=== PATIENT | female | born 1960 | race Caucasian/White ===

== ENCOUNTER 2018-03-23 17:56 | Emergency (ER) | payer MEDICAID ==
[~2018-03-23] VITALS: Ht 162.6 cm; Wt 84.8 kg
[2018-03-23] MEDS ORDERED: BACL10TA PO (18:12)
[2018-03-23] MEDS ORDERED: ASPI-618 PO (18:12)
[2018-03-23] MEDS ORDERED: ATOR20TA PO (18:12)
[2018-03-23] MEDS ORDERED: LORA10TA7 PO (18:12)
[2018-03-23] MEDS ORDERED: MONT10TA22 PO (18:12)
[2018-03-23] MEDS ORDERED: IBUP-1492 PO (18:12)
[2018-03-23] MEDS ORDERED: GLIM4TAB PO (18:12)
[2018-03-23] MEDS ORDERED: LOSA1TAB3 PO (18:12)
[2018-03-23] MEDS ORDERED: CLOT30CR TP (18:12)
[2018-03-23] MEDS ORDERED: OMEP40CA37 PO (18:12)
[2018-03-23] MEDS ORDERED: METO50TA16 PO (18:12)
[2018-03-23] MEDS ORDERED: FLUT1BLS IH (18:12)
[2018-03-23] MEDS ORDERED: TRIA5PAS10 TOP (18:12)
[2018-03-23] MEDS ORDERED: METF10004 PO (18:12)
[2018-03-23] MEDS ORDERED: CHOL200078 PO (18:12)
[2018-03-23] MEDS ORDERED: INSU100V7 SQ (18:12)
--- NOTE | 2018-03-23 19:00 | NUR ---
Dr. Ordaz at bedside for MSE.
--- NOTE | 2018-03-23 19:10 | NUR ---
Xray at bedside.
[2018-03-23] MEDS ORDERED: PIPERACILLIN SODIUM/TAZOBACTAM 3.375 G in IV DEXTROSE 5% 50 ML IV ONE (19:15)
[2018-03-23] MEDS ORDERED: IV NORMAL SALINE 1000 ML BAG IV ONE (19:15)
[2018-03-23] MEDS ORDERED: VANCOMYCIN IV 1,000 MG in IV DEXTROSE 5% 250 ML IV ONE (19:15)
--- NOTE | 2018-03-23 19:30 | NUR ---
Pt provided urine, sent to lab.
[2018-03-23] MEDS ORDERED: PIPERACILLIN/TAZOBACTAM/D5W 50 ML IV ONE (19:33)
[2018-03-23] MEDS ORDERED: VANCOMYCIN IV 200 ML ONE (19:34)
[2018-03-23 19:36] LABS: BASOPHILS # (AUTO) 0.1 K/uL (0.0-8.0); BASOPHILS % (AUTO) 0.7 % (0.0-2.0); EOSINOPHILS # (AUTO) 0.1 K/uL (0.0-0.7); EOSINOPHILS % (AUTO) 0.8 % (0.0-7.0); HEMATOCRIT 35.5 % (31.2-41.9); LYMPHOCYTES # (AUTO) 1.9 K/uL (20.0-40.0); MEAN CORPUSCULAR HEMOGLOBIN 29.1 uug (24.7-32.8); MEAN CORPUSCULAR HGB CONC 34 g/dL (32.3-35.6); MONOCYTES # (AUTO) 0.6 K/uL (2.0-10.0); MONOCYTES % (AUTO) 7.6 % (0.0-11.0); NEUTROPHILS # (AUTO) 5.9 K/uL (1.8-8.9); NEUTROPHILS % (AUTO) 68.9 % (38.5-71.5); PLATELET COUNT (AUTO) 127 K/uL (179-408); RED BLOOD CELL COUNT(AUTO) 4.13 MIL/uL (3.63-4.92); WHITE BLOOD COUNT (AUTO) 8.5 K/uL (3.8-11.8)
[2018-03-23 19:45] LABS: *BLOOD, URINE NEGATIVE (NEGATIVE); *COLOR,URINE DARK YELLOW (YELLOW); *KETONES,URINE 1+ (NEGATIVE); *PROTEIN,URINE 1+ (NEGATIVE); LEUKOCYTE ESTERASE ,URINE NEGATIVE (NEGATIVE); NITRITE, URINE NEGATIVE (NEGATIVE)
[2018-03-23 19:45] LABS: CREATININE 1.1 mg/dL (0.6-1.3)
--- NOTE | 2018-03-23 19:46 | NUR ---
Lab called, reports glucose 324, MD notified.
[2018-03-23 19:56] LABS: UGLUCOSE 2+ (NEGATIVE)
[2018-03-23 19:56] LABS: BILIRUBIN,DIRECT 0.2 mg/dL (0.0-0.2); BILIRUBIN,TOTAL 0.4 mg/dL (0.2-1.0); TOTAL PROTEIN, SERUM 7.7 g/dL (6.4-8.2)
[2018-03-23 19:57] LABS: *BILIRUBIN,URIN 1+ (NEGATIVE); *CLARITY,URINE SLIGHTLY HAZY (CLEAR)
--- NOTE | 2018-03-23 19:59 | NUR ---
Lab called, reports pt lactic acid 4.1. notified.
[2018-03-23 20:02] LABS: RBC,URINE 0-3 /HPF (0-3); WBC,URINE 0-3 /HPF (0-3)
[2018-03-23 20:03] LABS: BACTERIA,URINE FEW /HPF (NONE SEEN); MUCUS,URINE FEW /LPF (0-FEW); SQUAMOUS EPITHELIAL CELL,UR MODERATE /HPF (NONE SEEN)
--- NOTE | 2018-03-23 21:23 | NUR ---
Spoke with [employer], Zion, informed that patient does not want to go to [facility], pt requesting either [place], [facility], or [place]. [employer] representative reports he will try [facility], will call back.
--- NOTE | 2018-03-23 21:44 | NUR ---
Spoke with [facility] guest relations representative, John, stated [facility] will be [facility], requested to have face sheet and medicals faxed to
--- NOTE | 2018-03-23 23:52 | NUR ---
SPOKE WITH SHANDA SUPERVISOR COFFEE FROM [facility] ABOUT TRANSPORTATION SET UP TO [facility]. WAITING FOR CALL BACK FROM SHANDA
--- NOTE | 2018-03-23 23:55 | NUR ---
Passed report to Miya ALARCON [facility]. .
--- NOTE | 2018-03-24 00:05 | NUR ---
Called Danita, given trip#[id number], Auth# [id number], ETA 45min ~ 0050.
--- NOTE | 2018-03-24 00:53 | NUR ---
Danita arrived to facility to transport patient to [facility]. Report and documents given to EMT.
--- NOTE | 2018-03-24 01:00 | NUR ---
Pt out of ER via [facility], patient to be transported to [facility].
== END 2018-03-24 01:06 | disposition short-term general hospital (02) ==
LOC: ER 18:01
DX: A41.9 Sepsis, unspecified organism (principal); R65.21 Severe sepsis with septic shock; L03.115 Cellulitis of right lower limb; E11.9 Type 2 diabetes mellitus without complications; I10 Essential (primary) hypertension; K21.9 Gastro-esophageal reflux disease without esophagitis; E78.5 Hyperlipidemia, unspecified; Z79.51 Long term (current) use of inhaled steroids; Z79.82 Long term (current) use of aspirin; Z79.1 Long term (current) use of non-steroidal anti-inflammatories (NSAID); Z79.899 Other long term (current) drug therapy
CPT/HCPCS: 36415; 71045; 73630; 80048; 80076; 81001; 83605 ×2; 83880; 84484; 85025; 85730; 87040 ×2; 87086; 93005; 96365; 96375; 99291; A4663; J2543; J3370; J7030 ×3; 70030-TC

== ENCOUNTER 2020-09-19 08:03 | Inpatient (IN) | payer MEDICAID ==
[~2020-09-19] VITALS: Ht 158.8 cm; Wt 88.5 kg
[~2020-09-19 08:03] MED LIST: ASPI-618 PO; ATOR20TA PO; BACL10TA PO; CHOL200078 PO; CLOT30CR TP; FLUT1BLS IH; GLIM4TAB PO; IBUP-1492 PO; INSU100V7 SQ; LORA10TA7 PO; LOSA1TAB3 PO; METF-442 PO; METO50TA16 PO; MONT10TA22 PO; OMEP40CA13 PO; TRIA5PAS10 TOP
[2020-09-19] MEDS ORDERED: INSULIN REGULAR, HUMAN 100 UNITS in IV NORMAL SALINE 100 ML IV PRN ×2 (08:45)
[2020-09-19] MEDS ORDERED: INSULIN REGULAR, HUMAN 100 UNITS in IV NORMAL SALINE 100 ML IV ONE ×2 (08:45)
[2020-09-19] MEDS: IV NORMAL SALINE 1000 ML BAG IV ONE (08:50)
[2020-09-19] MEDS: BLOOD SUGAR DIAGNOSTIC 1 EACH STRIP VI SCH ×16 (08:50→23:00)
[2020-09-19 09:30] LABS: BILIRUBIN,DIRECT 0.2 mg/dL (0.0-0.2); BILIRUBIN,TOTAL 0.5 mg/dL (0.2-1.0); CREATININE 1.3 mg/dL (0.6-1.3); TOTAL PROTEIN, SERUM 5.6 g/dL (6.4-8.2)
[2020-09-19 09:32] LABS: BASOPHILS # (AUTO) 0.1 K/uL (0.0-8.0); BASOPHILS % (AUTO) 0.4 % (0.0-2.0); EOSINOPHILS % (AUTO) 0.3 % (0.0-7.0); HEMATOCRIT 24.1 % (31.2-41.9); HEMOGLOBIN 7.9 g/dL (10.9-14.3); LYMPHOCYTES # (AUTO) 3.3 K/uL (20.0-40.0); MEAN CORPUSCULAR HEMOGLOBIN 29.4 uug (24.7-32.8); MEAN CORPUSCULAR HGB CONC 33 g/dL (32.3-35.6); MEAN CORPUSCULAR VOLUME 89.9 fL (75.5-95.3); MONOCYTES # (AUTO) 0.9 K/uL (2.0-10.0); MONOCYTES % (AUTO) 5.6 % (0.0-11.0); NEUTROPHILS # (AUTO) 11.6 K/uL (1.8-8.9); NEUTROPHILS % (AUTO) 72.7 % (38.5-71.5); PLATELET COUNT (AUTO) 131 K/uL (179-408); RED BLOOD CELL COUNT(AUTO) 2.68 MIL/uL (3.63-4.92); WHITE BLOOD COUNT (AUTO) 15.9 K/uL (3.8-11.8)
[2020-09-19] MEDS ORDERED: IV NORMAL SALINE 1000 ML BAG IV ONE ×3 (10:00→19:15)
[2020-09-19] MEDS ORDERED: INSULIN REGULAR, HUMAN 100 UNIT in IV NORMAL SALINE 99 ML IV PRN ×2 (11:45)
[2020-09-19] MEDS ORDERED: ACETAMINOPHEN 650 MG SUPP.RECT RC PRN (11:45)
[2020-09-19] MEDS ORDERED: ONDANSETRON 4 MG/2 ML VIAL IV PRN (11:45)
[2020-09-19] MEDS ORDERED: IV NS 1000 ML 1,000 ML IV PRN ×2 (11:45→22:30)
[2020-09-19] MEDS ORDERED: ENOXAPARIN SODIUM 30 MG/0.3 ML DISP.SYRIN SQ SCH (11:45)
--- NOTE | 2020-09-19 12:27 | NUR ---
Patient moved from [facility] to hospital bed for comfort, still waiting for CCU/ICU bed & nurse@this time.
--- NOTE | 2020-09-19 13:35 | NUR ---
Patient ambulated to bathroom from ER room 2A, unassisted with slow steady gait. Patient voided and had one BM of dark brown stool.
[2020-09-19 15:13] LABS: *BILIRUBIN,URIN NEGATIVE (NEGATIVE); *BLOOD, URINE NEGATIVE (NEGATIVE); *CLARITY,URINE CLEAR (CLEAR); *COLOR,URINE YELLOW (YELLOW); *KETONES,URINE TRACE (NEGATIVE); *UROBILINOGEN,URINE 0.2 E.U./dl (NORMAL); LEUKOCYTE ESTERASE ,URINE NEGATIVE (NEGATIVE); NITRITE, URINE NEGATIVE (NEGATIVE); UGLUCOSE 2+ (NEGATIVE)
--- NOTE | 2020-09-19 15:21 | NUR ---
Patient ambulated to bathroom with minimal assist (about 3 more times to void,) +slow steady gait, calm & still waiting for assigned CCU/ICU bed/nurse@this time
--- NOTE | 2020-09-19 16:20 | NUR ---
Patient is resting comfortably in bed with eyes closed, still waiting for assigned CCU/ICU bed & nurse@this time
[2020-09-19] MEDS: METOPROLOL TARTRATE 50 MG TABLET PO SCH (17:00)
--- NOTE | 2020-09-19 17:07 | NUR ---
Patient was seen partially sitting on the floor with RN Sawyer behind the patient. Patient wanted to use the bathroom earlier and was guided to the bathroom. Per RN Bill, as patient started to walk, the patient seemed to become less alert. RN Sawyer caught the patient before the fall. Patient was eased on to the ground. 4 additional nurses came to move the patient back to the hospital bed. Patient was examined for injuries. Patient denies pains. No visible injuries seen. Dr Lisa notified.
[2020-09-19 17:40] LABS: URIC ACID 6.2 mg/dL (2.6-6.0)
[2020-09-19 17:55] LABS: POTASSIUM 4.1 mmol/L (3.5-5.1)
[2020-09-19 18:10] LABS: THYROID STIMULATING HORMONE 1.447 mIU/mL (0.358-3.740)
[2020-09-19] MEDS ORDERED: DEXTROSE 50% 50 ML DISP.SYRIN IV PRN (18:45)
--- NOTE | 2020-09-19 18:46 | NUR ---
Patient wants to go to the bathroom again. Patient was repeatedly reminded of her carter catheter which is draining her urine. Comfort and safety measures maintained.
[2020-09-19 18:54] LABS: *CREATININE,URINE 32.3 mg/dL (30-125); *URINE TOTAL PROTEIN RANDOM < 6.0 mg/dL (<150/24HR)
--- NOTE | 2020-09-19 18:54 | NUR ---
Insulin drip stopped per LATESHA Macias.
--- NOTE | 2020-09-19 18:59 | NUR ---
Endorsed to DORIAN Rooney accordingly.
--- NOTE | 2020-09-19 19:11 | NUR ---
Still waiting for CCU/ICU bed & nurse, IV insulin drip has been stopped per [employer] WORK[employer] Princess Macias, endorsed to RN Zia accordingly.
[2020-09-19] MEDS: INSULIN REGULAR, HUMAN 300 UNIT/3 ML VIAL SQ PRN ×5 (19:36→23:01)
[2020-09-19 19:42] LABS: POTASSIUM 4.2 mmol/L (3.5-5.1)
[2020-09-19] MEDS ORDERED: IV LACTATED RINGERS SOLUTION 1,000 ML IV ONE (19:45)
--- NOTE | 2020-09-19 19:45 | NUR ---
AT 1910 ECEIVED SBAR REPORT FROM [place] RN, PT ACCU VNMYP=993, 2O UNUBTS REG INSULIN SQ ADMINISTERED. MONITOR SHOWS SINUS TACH AT 116 BPM,PO2=99% ON ROOMAIR, BP=97/46. PT HAS NO COMPLAINTS. 0.9 NS 1L INFUSING.
[2020-09-19 19:59] LABS: BASOPHILS # (AUTO) 0.1 K/uL (0.0-8.0); BASOPHILS % (AUTO) 0.5 % (0.0-2.0); EOSINOPHILS # (AUTO) 0.1 K/uL (0.0-0.7); LYMPHOCYTES # (AUTO) 4.8 K/uL (20.0-40.0); MEAN CORPUSCULAR HEMOGLOBIN 28.9 uug (24.7-32.8); MEAN CORPUSCULAR HGB CONC 33 g/dL (32.3-35.6); MONOCYTES # (AUTO) 1.6 K/uL (2.0-10.0)
[2020-09-19 20:01] LABS: EOSINOPHILS % (AUTO) 0.4 % (0.0-7.0); LYMPHOCYTES % (AUTO) 22.8 % (20.5-51.5); MEAN CORPUSCULAR VOLUME 88.3 fL (75.5-95.3); MONOCYTES % (AUTO) 7.6 % (0.0-11.0); NEUTROPHILS # (AUTO) 14.4 K/uL (1.8-8.9); NEUTROPHILS % (AUTO) 68.7 % (38.5-71.5); PLATELET COUNT (AUTO) 141 K/uL (179-408); WHITE BLOOD COUNT (AUTO) 20.9 K/uL (3.8-11.8)
[2020-09-19 20:06] LABS: RED BLOOD CELL COUNT(AUTO) 1.99 MIL/uL (3.63-4.92)
[2020-09-19 20:07] LABS: HEMATOCRIT 17.6 % (31.2-41.9); HEMOGLOBIN 5.7 g/dL (10.9-14.3)
[2020-09-19] MEDS ORDERED: PANTOPRAZOLE SODIUM 40 MG VIAL IV SCH (20:15)
--- NOTE | 2020-09-19 20:21 | NUR ---
PHARMACY NOTE FOR ACCU CHECH AT 1999. TWO ORDERS OF ACCU CHECK AT 1999. ONE WAS DOS COMPLETED, ACUU CHECK = 277, AND PT ADMINISTERED 12 UNITS REGULAR INSULIN SQ TO LLQ ABD.
[2020-09-19 20:22] LABS: *OCCULT BLOOD STOOL POSITIVE (NEGATIVE)
[2020-09-19] MEDS ORDERED: PIPERACILLIN/TAZOBACTAM/D5W 50 ML IV ONE (20:29)
[2020-09-19] MEDS: PIPERACILLIN SODIUM/TAZOBACTAM 3.375 G in IV DEXTROSE 5% 50 ML IV SCH (20:39)
[2020-09-19] MEDS: BACLOFEN 10 MG TABLET PO SCH (20:44)
[2020-09-19] MEDS: ATORVASTATIN 20 MG TABLET PO SCH (21:12)
--- NOTE | 2020-09-19 22:38 | NUR ---
PHARMACY NOTE; LACTATED RINGERS INFUSION COMPLETED AT 4796 TO LEFT HAND
[2020-09-20] MEDS: PIPERACILLIN SODIUM/TAZOBACTAM 3.375 G in IV DEXTROSE 5% 50 ML IV SCH ×4 (00:01→18:00)
[2020-09-20] MEDS: BLOOD SUGAR DIAGNOSTIC 1 EACH STRIP VI SCH ×21 (00:06→20:00)
[2020-09-20 00:07] LABS: BAND % (MANUAL) 1 % (0-10); EOSINOPHILS % (MANUAL) 1 % (0-8); LYMPHOCYTES % (MANUAL) 18 % (20-40); MONOCYTES % (MANUAL) 8 % (2-10); NEUTROPHILS % (MANUAL) 72 % (42-75)
[2020-09-20] MEDS: INSULIN REGULAR, HUMAN 300 UNIT/3 ML VIAL SQ PRN ×5 (00:08→16:44)
--- NOTE | 2020-09-20 01:01 | NUR ---
1ST UINIT OF GUERALOD STARTED AT 54, CONSENT SIGNED, TOY MIDDLETON RN WITTNESSED AND CHECKED UNIT. PT NOTIFIED OF ADVERSE REACTIONS.
--- NOTE | 2020-09-20 01:56 | NUR ---
BLOOD TRANSFUSION OF FIRST UNIT COMPLETED, NO ADVERSE OR ALLERGIC REACTIONS NOTED.
--- NOTE | 2020-09-20 02:45 | NUR ---
2ND UNIT OF BLOOD TRANSFUSION STARTED.
--- NOTE | 2020-09-20 03:48 | NUR ---
2ND UNIT OF BLOOD INFUSING, PT ASLEEP, EYES CLOSED, MONITOR SHOWS SINUS TACH AT 102, VSS.
--- NOTE | 2020-09-20 04:14 | NUR ---
URINARY FOWLEY BAG EMPTIED, 900ML OF URINE DRAINED.
[2020-09-20] MEDS ORDERED: PIPERACILLIN SODIUM/TAZO 3.375 GM VIAL ONE (05:57)
--- NOTE | 2020-09-20 06:59 | NUR ---
MONITOR SHOWS NSR, SBAR REPORT GUILLE PEARL RN. PT SLEEPING.
[2020-09-20] MEDS: METOPROLOL TARTRATE 50 MG TABLET PO SCH ×2 (09:00→17:00)
[2020-09-20] MEDS ORDERED: Medication Not On Formulary EA (Losartan/Hydrochlorothiazide (Hyzaar 50-12.5 Tablet) 1 E PO SCH (09:00)
[2020-09-20] MEDS ORDERED: ASPIRIN EC 81 MG TABLET.DR PO SCH (09:00)
[2020-09-20 10:09] LABS: BASOPHILS # (AUTO) 0.1 K/uL (0.0-8.0); BASOPHILS % (AUTO) 0.5 % (0.0-2.0); EOSINOPHILS # (AUTO) 0.3 K/uL (0.0-0.7); EOSINOPHILS % (AUTO) 1.5 % (0.0-7.0); HEMATOCRIT 23.4 % (31.2-41.9); LYMPHOCYTES # (AUTO) 4.5 K/uL (20.0-40.0); LYMPHOCYTES % (AUTO) 24.6 % (20.5-51.5); MEAN CORPUSCULAR HEMOGLOBIN 29.7 uug (24.7-32.8); MEAN CORPUSCULAR HGB CONC 34 g/dL (32.3-35.6); MEAN CORPUSCULAR VOLUME 87.1 fL (75.5-95.3); MONOCYTES # (AUTO) 1.2 K/uL (2.0-10.0); MONOCYTES % (AUTO) 6.5 % (0.0-11.0); NEUTROPHILS # (AUTO) 12.1 K/uL (1.8-8.9); NEUTROPHILS % (AUTO) 66.9 % (38.5-71.5); PLATELET COUNT (AUTO) 90 K/uL (179-408); RED BLOOD CELL COUNT(AUTO) 2.69 MIL/uL (3.63-4.92); WHITE BLOOD COUNT (AUTO) 18.1 K/uL (3.8-11.8)
[2020-09-20 10:16] LABS: BILIRUBIN,TOTAL 0.4 mg/dL (0.2-1.0); CREATININE 0.9 mg/dL (0.6-1.3); MAGNESIUM 1.6 mg/dL (1.8-2.4); PHOSPHOROUS 2.4 mg/dL (2.5-4.9); POTASSIUM 3.4 mmol/L (3.5-5.1); TOTAL PROTEIN, SERUM 4.8 g/dL (6.4-8.2)
[2020-09-20] MEDS: FLUTICASONE/VILANTEROL 1 EACH BLST.W.DEV IH SCH (11:00)
[2020-09-20] MEDS: CLOTRIMAZOLE 1% CREAM 30 GM TUBE TP SCH (11:00)
[2020-09-20] MEDS: CHOLECALCIFEROL 1,000 UNIT TABLET PO SCH (11:00)
[2020-09-20] MEDS ORDERED: MAGNESIUM SULFATE/D5W 100 ML IV SCH (11:45)
[2020-09-20] MEDS: LOSARTAN POTASSIUM 50 MG TABLET PO SCH (12:00)
[2020-09-20] MEDS: HYDROCHLOROTHIAZIDE 12.5 MG CAPSULE PO SCH (12:00)
[2020-09-20] MEDS ORDERED: POTASSIUM CHLORIDE 20 MEQ TAB.PRT.SR PO ONE (12:00)
[2020-09-20] MEDS ORDERED: VANCOMYCIN IV 750 MG in IV DEXTROSE 5% 250 ML IV SCH (12:00)
[2020-09-20] MEDS: VANCOMYCIN IV 750 MG in IV DEXTROSE 5% 250 ML IV SCH (13:01)
[2020-09-20] MEDS ORDERED: MAGNESIUM SULFATE/D5W 100 ML ONE (13:02)
[2020-09-20] MEDS ORDERED: VANCOMYCIN IV 200 ML ONE (13:18)
[2020-09-20] MEDS ORDERED: POTASSIUM CHLORIDE 20 MEQ TAB.PRT.SR ONE (13:18)
[2020-09-20] MEDS: POTASSIUM PHOSPHATE MM 7.5 MMOL in IV NORMAL SALINE 97.5 ML IV SCH ×2 (14:48→22:02)
[2020-09-20] MEDS ORDERED: INSULIN REGULAR, HUMAN 300 UNIT/3 ML VIAL ONE (15:01)
[2020-09-20 15:30] LABS: BASOPHILS % (AUTO) 0.4 % (0.0-2.0); EOSINOPHILS # (AUTO) 0.2 K/uL (0.0-0.7); EOSINOPHILS % (AUTO) 1.4 % (0.0-7.0); HEMATOCRIT 22.6 % (31.2-41.9); HEMOGLOBIN 7.5 g/dL (10.9-14.3); LYMPHOCYTES # (AUTO) 2.4 K/uL (20.0-40.0); MEAN CORPUSCULAR HEMOGLOBIN 28.9 uug (24.7-32.8); MEAN CORPUSCULAR HGB CONC 33 g/dL (32.3-35.6); MEAN CORPUSCULAR VOLUME 86.9 fL (75.5-95.3); MONOCYTES # (AUTO) 0.8 K/uL (2.0-10.0); MONOCYTES % (AUTO) 6.2 % (0.0-11.0); PLATELET COUNT (AUTO) 84 K/uL (179-408); WHITE BLOOD COUNT (AUTO) 13.5 K/uL (3.8-11.8)
--- NOTE | 2020-09-20 17:28 | NUR ---
report was given to lucerne farmer. pt was transfered to room #319.
[2020-09-20] MEDS: MONTELUKAST SODIUM 10 MG TABLET PO SCH (18:00)
--- NOTE | 2020-09-20 19:00 | NUR ---
patient receive sitting on the bed,assisted back to bed.k rider on , iv cannula to the left wrist is rtnder.discontinued . iv cannula to th lft hand restarted the k rider.
[2020-09-20 20:29] VITALS: BP 102/46
[2020-09-20] MEDS: PANTOPRAZOLE SODIUM 40 MG VIAL IV SCH (22:01)
[2020-09-20] MEDS: BACLOFEN 10 MG TABLET PO SCH (22:01)
[2020-09-20] MEDS: ATORVASTATIN 20 MG TABLET PO SCH (22:01)
--- NOTE | 2020-09-20 22:52 | NUR ---
iv cannula g 22 right forearm inserted and krider restarted,
[2020-09-21 00:33] VITALS: BP 109/54
[2020-09-21] MEDS: INSULIN REGULAR, HUMAN 300 UNIT/3 ML VIAL SQ PRN ×4 (01:23→21:18)
[2020-09-21] MEDS: VANCOMYCIN IV 750 MG in IV DEXTROSE 5% 250 ML IV SCH ×2 (01:29→14:24)
[2020-09-21] MEDS: BLOOD SUGAR DIAGNOSTIC 1 EACH STRIP VI SCH ×7 (04:00→23:20)
[2020-09-21 05:09] VITALS: BP 108/47
[2020-09-21] MEDS: PIPERACILLIN SODIUM/TAZOBACTAM 3.375 G in IV DEXTROSE 5% 50 ML IV SCH ×6 (05:11→23:20)
--- NOTE | 2020-09-21 08:02 | NUR ---
UNABLE TO OBTAIN FAMILY HISTORY
[2020-09-21 08:15] VITALS: BP 99/40
[2020-09-21 08:53] LABS: MAGNESIUM 1.6 mg/dL (1.8-2.4); PHOSPHOROUS 2.3 mg/dL (2.5-4.9)
[2020-09-21] MEDS: LOSARTAN POTASSIUM 50 MG TABLET PO SCH (09:00)
[2020-09-21] MEDS: FLUTICASONE/VILANTEROL 1 EACH BLST.W.DEV IH SCH (09:00)
[2020-09-21] MEDS: METOPROLOL TARTRATE 50 MG TABLET PO SCH ×2 (09:00→16:58)
[2020-09-21 10:24] LABS: CREATININE 0.7 mg/dL (0.6-1.3); POTASSIUM 3.1 mmol/L (3.5-5.1)
[2020-09-21 10:36] LABS: BASOPHILS % (AUTO) 0.7 % (0.0-2.0); EOSINOPHILS # (AUTO) 0.2 K/uL (0.0-0.7); HEMATOCRIT 22.1 % (31.2-41.9); HEMOGLOBIN 7.5 g/dL (10.9-14.3); LYMPHOCYTES # (AUTO) 1.4 K/uL (20.0-40.0); LYMPHOCYTES % (AUTO) 20.6 % (20.5-51.5); MEAN CORPUSCULAR HEMOGLOBIN 29.8 uug (24.7-32.8); MEAN CORPUSCULAR HGB CONC 34 g/dL (32.3-35.6); MEAN CORPUSCULAR VOLUME 88.1 fL (75.5-95.3); MONOCYTES # (AUTO) 0.5 K/uL (2.0-10.0); MONOCYTES % (AUTO) 7.6 % (0.0-11.0); NEUTROPHILS # (AUTO) 4.6 K/uL (1.8-8.9); NEUTROPHILS % (AUTO) 68.1 % (38.5-71.5); PLATELET COUNT (AUTO) 67 K/uL (179-408); WHITE BLOOD COUNT (AUTO) 6.8 K/uL (3.8-11.8)
[2020-09-21] MEDS: PANTOPRAZOLE SODIUM 40 MG VIAL IV SCH ×2 (10:49→20:58)
[2020-09-21] MEDS: CHOLECALCIFEROL 1,000 UNIT TABLET PO SCH (10:51)
[2020-09-21] MEDS: HYDROCHLOROTHIAZIDE 12.5 MG CAPSULE PO SCH (10:53)
[2020-09-21] MEDS: CLOTRIMAZOLE 1% CREAM 30 GM TUBE TP SCH (10:55)
[2020-09-21 11:15] VITALS: BP 105/51
[2020-09-21] MEDS ORDERED: POTASSIUM CHLORIDE 20 MEQ TAB.PRT.SR PO ONE (11:30)
[2020-09-21] MEDS ORDERED: NEUTRA PHOS PACKET PO ONE (13:00)
[2020-09-21] MEDS: IV DEXTROSE 5%-0.9%NS+20MeqKCL 1,000 ML IV PRN (14:24)
[2020-09-21] MEDS ORDERED: VANCOMYCIN IV 1,000 MG in IV DEXTROSE 5% 250 ML IV SCH (15:00)
[2020-09-21 15:20] VITALS: BP 100/58
[2020-09-21] MEDS ORDERED: MIRALAX 17 GM POWD.PACK PO ONE (16:15)
[2020-09-21] MEDS: MONTELUKAST SODIUM 10 MG TABLET PO SCH (16:58)
--- NOTE | 2020-09-21 19:30 | NUR ---
RECEIVED PT AWAKE, ALERT AND ORIENTEDX4. PT IN NO ACUTE DISTRESS. IV INTACT. CERVANTES CATHETER INTACT AND DRAINING WELL.PT ON SR ON HEART MONITOR. SAFETY AND COMFORT PROVIDED.WILL CONTINUE TO MONITOR.
[2020-09-21 20:55] VITALS: BP 120/64
[2020-09-21] MEDS: BACLOFEN 10 MG TABLET PO SCH (20:58)
[2020-09-21] MEDS: ATORVASTATIN 20 MG TABLET PO SCH (20:58)
--- NOTE | 2020-09-21 21:00 | NUR ---
DAUGHTER OF THE PT CALLED AND CLARIFIED THAT HER MOTHER DOESN'T HAVE ANY BLOOD IN THE STOOL AND DIDN'T VOMIT BLOOD. DAUGHTER WANTS TO TALK TO THE DOCTOR. TOLD DR THAT WE WILL RELAY THE MESSAGE.
--- NOTE | 2020-09-21 23:20 | NUR ---
PT REFUSED FOR BLOOD CHECK FOR 0000H. PT STATED SHE WANTS TO SLEEP. PT IN NO ACUTE DISTRESS. WILL CONTINUE TO MONITOR.
[2020-09-22] VITALS (11 sets, daily range): BP systolic 100–147; BP diastolic 40–71
[2020-09-22] MEDS: VANCOMYCIN IV 1,000 MG in IV DEXTROSE 5% 250 ML IV SCH ×2 (02:13→14:26)
[2020-09-22] MEDS: BLOOD SUGAR DIAGNOSTIC 1 EACH STRIP VI SCH ×6 (04:08→23:16)
[2020-09-22] MEDS: INSULIN REGULAR, HUMAN 300 UNIT/3 ML VIAL SQ PRN ×4 (04:09→20:36)
[2020-09-22] MEDS: PIPERACILLIN SODIUM/TAZOBACTAM 3.375 G in IV DEXTROSE 5% 50 ML IV SCH ×4 (05:03→23:21)
--- NOTE | 2020-09-22 06:57 | NUR ---
PT SLEPT INTERMITTENTLY. PT IN NO ACUTE DISTRESS. IV INTACT. CERVANTES CATHETER INTACT AND DRAINING YELLOW COLORED URINE WITH SEDIMENTS. PT STATING SHE WANTS TO GO HOME BECAUSE ITS HER SON'S BIRTHDAY.pt on sinus rhythm. SAFETY AND COMFORT PROVIDED. WILL ENDORSE TO INCOMING NURSE FOR CONTINUITY OF CARE.
[2020-09-22 07:57] LABS: CREATININE 0.8 mg/dL (0.6-1.3); POTASSIUM 2.9 mmol/L (3.5-5.1)
[2020-09-22 08:04] LABS: BASOPHILS % (AUTO) 0.8 % (0.0-2.0); EOSINOPHILS # (AUTO) 0.1 K/uL (0.0-0.7); EOSINOPHILS % (AUTO) 2.1 % (0.0-7.0); LYMPHOCYTES # (AUTO) 1.1 K/uL (20.0-40.0); LYMPHOCYTES % (AUTO) 26.1 % (20.5-51.5); MEAN CORPUSCULAR HGB CONC 35 g/dL (32.3-35.6); MEAN CORPUSCULAR VOLUME 89.6 fL (75.5-95.3); MONOCYTES # (AUTO) 0.3 K/uL (2.0-10.0); MONOCYTES % (AUTO) 7.4 % (0.0-11.0); NEUTROPHILS # (AUTO) 2.7 K/uL (1.8-8.9); NEUTROPHILS % (AUTO) 63.6 % (38.5-71.5); PLATELET COUNT (AUTO) 59 K/uL (179-408); WHITE BLOOD COUNT (AUTO) 4.3 K/uL (3.8-11.8)
[2020-09-22 08:19] LABS: RED BLOOD CELL COUNT(AUTO) 2.23 MIL/uL (3.63-4.92)
[2020-09-22 08:21] LABS: HEMATOCRIT 19.9 % (31.2-41.9); HEMOGLOBIN 6.9 g/dL (10.9-14.3)
[2020-09-22] MEDS: CHOLECALCIFEROL 1,000 UNIT TABLET PO SCH (08:25)
[2020-09-22] MEDS: HYDROCHLOROTHIAZIDE 12.5 MG CAPSULE PO SCH (08:29)
[2020-09-22] MEDS: LOSARTAN POTASSIUM 50 MG TABLET PO SCH (08:29)
[2020-09-22] MEDS: PANTOPRAZOLE SODIUM 40 MG VIAL IV SCH ×2 (08:30→20:55)
[2020-09-22] MEDS: METOPROLOL TARTRATE 50 MG TABLET PO SCH ×2 (08:30→16:35)
[2020-09-22] MEDS: FLUTICASONE/VILANTEROL 1 EACH BLST.W.DEV IH SCH (08:43)
[2020-09-22] MEDS: CLOTRIMAZOLE 1% CREAM 30 GM TUBE TP SCH (08:43)
[2020-09-22] MEDS: POTASSIUM CHLORIDE 20 MEQ TAB.PRT.SR PO SCH ×3 (10:03→11:59)
[2020-09-22] MEDS: MONTELUKAST SODIUM 10 MG TABLET PO SCH (17:24)
--- NOTE | 2020-09-22 17:46 | NUR ---
Pt receiving blood tx. 1 uint prbc as ordered. No reaction within 30mins increased rate to 120cc/hr. PT aware of s/s of blood reaction and to notify RN for and reactions.
--- NOTE | 2020-09-22 17:54 | NUR ---
No actively bleeding noted this shift. Pt denies any bleeding as well. PT tolerating blood
--- NOTE | 2020-09-22 19:30 | NUR ---
RECEIVED PT AWAKE, ALERT AND ORIENTEDX4. PT IV INTACT AND BLOOD TRANSFUSION ONGOING. . PT ON ROOM AIR. SAFETY AND COMFORT PROVIDED. WILL CONTINUE TO MONITOR.
[2020-09-22] MEDS: BACLOFEN 10 MG TABLET PO SCH (20:15)
[2020-09-22] MEDS: ATORVASTATIN 20 MG TABLET PO SCH (20:15)
--- NOTE | 2020-09-22 21:30 | NUR ---
AT 2030H BLOOD TRANSFUSION DONE. NO ADVERSE REACTION NOTED. PT TOLERATED IT WELL. VITAL SIGNS STABLE. WILL COTNINUE TO MONITOR.
[2020-09-22 22:51] LABS: EOSINOPHILS % (MANUAL) 2 % (0-8); LYMPHOCYTES % (MANUAL) 25 % (20-40); MONOCYTES % (MANUAL) 8 % (2-10); NEUTROPHILS % (MANUAL) 65 % (42-75)
--- NOTE | 2020-09-23 00:10 | NUR ---
DAUGHTER CALLED FOR AN UPDATE REGARDING HER MOM. DAUGHTER WANTS PRIMARY DOCTOR TO CALL HER FOR UPDATES.
[2020-09-23] MEDS: VANCOMYCIN IV 1,000 MG in IV DEXTROSE 5% 250 ML IV SCH ×2 (02:16→15:39)
[2020-09-23] MEDS: BLOOD SUGAR DIAGNOSTIC 1 EACH STRIP VI SCH ×4 (03:57→15:48)
[2020-09-23] MEDS: IV DEXTROSE 5%-0.9%NS+20MeqKCL 1,000 ML IV PRN (03:58)
[2020-09-23 04:28] VITALS: BP 109/50
[2020-09-23] MEDS: PIPERACILLIN SODIUM/TAZOBACTAM 3.375 G in IV DEXTROSE 5% 50 ML IV SCH ×3 (05:32→18:00)
--- NOTE | 2020-09-23 06:13 | NUR ---
PT SLEPT INTERMITTENTLY. PT IN NO ACUTE DISTRESS. PT ON ROOM AIR. PRESCRIBED MEDICATION GIVEN AND PT TOLERATED IT WELL. PT IV INTACT. SAFETY AND COMFORT PROVIDED. WILL ENDORSE TO INCOMING NURSE FOR CONTINUITY OF CARE.
[2020-09-23 06:33] LABS: BASOPHILS % (AUTO) 0.7 % (0.0-2.0); EOSINOPHILS # (AUTO) 0.1 K/uL (0.0-0.7); HEMOGLOBIN 8.9 g/dL (10.9-14.3); LYMPHOCYTES # (AUTO) 1.3 K/uL (20.0-40.0); LYMPHOCYTES % (AUTO) 28.9 % (20.5-51.5); MEAN CORPUSCULAR HEMOGLOBIN 30.6 uug (24.7-32.8); MEAN CORPUSCULAR HGB CONC 34 g/dL (32.3-35.6); MEAN CORPUSCULAR VOLUME 89.6 fL (75.5-95.3); MONOCYTES # (AUTO) 0.4 K/uL (2.0-10.0); MONOCYTES % (AUTO) 8.3 % (0.0-11.0); NEUTROPHILS # (AUTO) 2.7 K/uL (1.8-8.9); NEUTROPHILS % (AUTO) 60.1 % (38.5-71.5); PLATELET COUNT (AUTO) 73 K/uL (179-408); RED BLOOD CELL COUNT(AUTO) 2.91 MIL/uL (3.63-4.92); WHITE BLOOD COUNT (AUTO) 4.5 K/uL (3.8-11.8)
[2020-09-23 06:45] LABS: BILIRUBIN,TOTAL 0.6 mg/dL (0.2-1.0); CREATININE 0.8 mg/dL (0.6-1.3); POTASSIUM 3.6 mmol/L (3.5-5.1); TOTAL PROTEIN, SERUM 5.6 g/dL (6.4-8.2)
[2020-09-23] MEDS: CHOLECALCIFEROL 1,000 UNIT TABLET PO SCH (08:43)
[2020-09-23] MEDS: LOSARTAN POTASSIUM 50 MG TABLET PO SCH (08:44)
[2020-09-23] MEDS: METOPROLOL TARTRATE 50 MG TABLET PO SCH ×2 (08:44→16:41)
[2020-09-23] MEDS: HYDROCHLOROTHIAZIDE 12.5 MG CAPSULE PO SCH (08:44)
[2020-09-23] MEDS: PANTOPRAZOLE SODIUM 40 MG VIAL IV SCH (08:46)
[2020-09-23] MEDS: FLUTICASONE/VILANTEROL 1 EACH BLST.W.DEV IH SCH (08:48)
[2020-09-23] MEDS: INSULIN REGULAR, HUMAN 300 UNIT/3 ML VIAL SQ PRN ×4 (08:53→15:56)
[2020-09-23] MEDS: CLOTRIMAZOLE 1% CREAM 30 GM TUBE TP SCH (09:00)
[2020-09-23 12:01] VITALS: BP 96/45
[2020-09-23 16:00] VITALS: BP 108/56
[2020-09-23 16:41] VITALS: BP 108/87
[2020-09-23] MEDS: MONTELUKAST SODIUM 10 MG TABLET PO SCH (18:00)
== END 2020-09-23 18:00 | disposition home or self-care (01) | DRG 420 ==
LOC: ER 08:03 → TRANSITION 11:00 → DOU3 09-20 16:30 → TELE-TD3 09-20 20:24 → MEDSURG3 09-22 11:54
PROVIDERS: ADMIT Nurse Practitioner Acute Care; ATTEND Nurse Practitioner Acute Care
PROC: 30233N1 Transfusion of Nonautologous Red Blood Cells into Peripheral Vein, Percutaneous Approach (ICD-10-PCS; principal; 2020-09-20)
DX: E11.00 Type 2 diabetes mellitus with hyperosmolarity without nonketotic hyperglycemic-hyperosmolar coma (NKHHC) (principal); D62 Acute posthemorrhagic anemia; N17.0 Acute kidney failure with tubular necrosis; E87.5 Hyperkalemia; E87.1 Hypo-osmolality and hyponatremia; E43 Unspecified severe protein-calorie malnutrition; E66.9 Obesity, unspecified; E78.5 Hyperlipidemia, unspecified; E86.0 Dehydration; E86.1 Hypovolemia; I10 Essential (primary) hypertension; J45.909 Unspecified asthma, uncomplicated; K21.9 Gastro-esophageal reflux disease without esophagitis; Z79.4 Long term (current) use of insulin; Z79.82 Long term (current) use of aspirin; Z91.19 Patient's noncompliance with other medical treatment and regimen; E11.10 Type 2 diabetes mellitus with ketoacidosis without coma; D64.9 Anemia, unspecified; R53.1 Weakness; E88.09 Other disorders of plasma-protein metabolism, not elsewhere classified; Z68.35 Body mass index [BMI] 35.0-35.9, adult; Z79.84 Long term (current) use of oral hypoglycemic drugs; K92.2 Gastrointestinal hemorrhage, unspecified
CPT/HCPCS: 36415; 51702; 70030-TC; 71045; 74018; 82533; 83605; 83690; 83735; 84100; 84156; 84300; 84443; 84550; 85025; 85730; 86850; 86900; 86901; 86920; 87040; 87086; 93005; A4663; C1758; C9113; G0378; J1650; J1815; J2543; J3370; J3475; J3490; J7030; J7050; J7060; J7120; P9016-BL; P9021; U0003